=== PATIENT | female | born 1970 | race Caucasian/White ===

== ENCOUNTER 2023-12-18 13:41 | Emergency (ER) | payer MEDICAID ==
[~2023-12-18] VITALS: Ht 160 cm; Wt 75.3 kg
[~2023-12-18 13:41] MED LIST: CHOL100046 PO; FERR325T28 PO; GABA800T PO; MULT-933 PO; TIZA4TAB11 PO
[2023-12-18 14:06] VITALS: BP 129/83; PULSE 91; RESP 18; O2SAT 98
[2023-12-18 15:12] LABS: BILIRUBIN,URINE MODERATE (Neg); CLARITY,URINE CLOUDY (Clear); COLOR,URINE YELLOW (Yellow); GLUCOSE, URINE NEGATIVE (Neg); KETONES,URINE 40 mg/dl (Neg); LEUKOCYTE ESTERASE ,URINE SMALL (Neg); OCCULT BLOOD,URINE NEGATIVE (Neg); PH,URINE 5.5 (4.8-8.0); PROTEIN,URINE TRACE mg/dl (Neg)
[2023-12-18 15:23] LABS: UA COLLECTION TYPE CLN CATCH MIDSTREAM
[2023-12-18 15:24] LABS: NITRITES, URINE NEGATIVE (Neg)
[2023-12-18 15:33] LABS: SQUAMOUS EPITHELIAL CELL,UR MANY /LPF (FEW)
[2023-12-18 15:34] LABS: CAL OXALATE CRYSTALS 4+ /HPF (NEGATIVE); HYALINE CASTS 0-3 /LPF (NEGATIVE); MUCUS STRANDS FEW /LPF (Neg)
[2023-12-18 15:35] LABS: BACTERIA,URINE FEW /HPF (Neg); RBC,URINE 0-2 /HPF (0-2)
[2023-12-18] MEDS ORDERED: CEPH-585 PO (16:37)
[2023-12-18] MEDS ORDERED: PHEN-716 PO (16:37)
[2023-12-18] MEDS: CefTRIAXone 1000mg IM Kit (w/lidocaine diluent) IM ONE (17:13)
[2023-12-18 17:30] VITALS: TEMP 98
== END 2023-12-18 17:31 | disposition home or self-care (01) ==
LOC: ER 13:42
DX: N39.0 Urinary tract infection, site not specified (principal); Z88.0 Allergy status to penicillin; Z88.5 Allergy status to narcotic agent; Z79.899 Other long term (current) drug therapy; Z91.018 Allergy to other foods
CPT/HCPCS: 81001; 96372; 99283; J0696